=== PATIENT | female | born 1955 | race Caucasian/White ===

== ENCOUNTER → 2016-10-17 | Outpatient (CLI) | payer MEDICARE, OTHER ==
--- NOTE | 2016-10-18 08:49 | US ---
EXAMINATION TYPE: US carotid duplex BILAT DATE OF EXAM: 10/17/2016 4:53 PM COMPARISON: NONE CLINICAL HISTORY: Syncope R55. Syncope and collapse EXAM MEASUREMENTS: RIGHT: Peak Systolic Velocity (PSV) cm/sec ----- Right CCA: 61.6 ----- Right ICA: 65.1 ----- Right ECA: 69.5 ICA/CCA ratio: 1.1 RIGHT: End Diastole cm/sec ----- Right CCA: 24.1 ----- Right ICA: 25.8 ----- Right ECA: 18.0 LEFT: Peak Systolic Velocity (PSV) cm/sec ----- Left CCA: 74.7 ----- Left ICA: 85.5 ----- Left ECA: 67.7 ICA/CCA ratio: 1.1 LEFT: End Diastole cm/sec ----- Left CCA: 26.7 ----- Left ICA: 37.0 ----- Left ECA: 12.7 VERTEBRALS (direction of flow): Right Vertebral: Antegrade Left Vertebral: Antegrade TECHNOLOGIST IMPRESSION: No significant stenosis seen, bilaterally IMPRESSION: I DO NOT SEE EVIDENCE OF A HEMODYNAMICALLY SIGNIFICANT STENOSIS IN EITHER CAROTID SYSTEM. Criteria for Assigning % of Stenosis / Diameter reduction (Estimation based on the indirect measurements of the internal carotid artery velocities (ICA PSV). 1. Normal (no stenosis)=ICA PSV < 125 cm/s: ratio < 2.0: ICA EDV<40 cm/s. 2. Less than 50% stenosis=ICA PSV < 125 cm/s: ratio < 2.0: ICA EDV<40 cm/s. 3. 50 to 69% stenosis=ICA PSV of 125 to 230 cm/s: ration 2.0 ? 4.0: ICA EDV 40-100 cm/s. 4. Greater than 70% stenosis to near occlusion= ICA PSV > 230 cm/s: ratio > 4.0: ICA EDV > 100 cm/s. 5. Near occlusion= ICA PSV velocities may be low or undetectable: variable ratio and ICA EDV. 6. Total occlusion=unable to detect flow.
== END | disposition home or self-care (01) ==
LOC: RADUSWWP 16:32
PROVIDERS: ATTEND Family Medicine
DX: R55 Syncope and collapse (principal)
CPT/HCPCS: 93880

== ENCOUNTER → 2016-10-17 | Outpatient (CLI) | payer MEDICARE, OTHER ==
[2016-10-17 16:04] LABS: Calcium 9.1 mg/dL (8.4-10.2); Potassium 4.4 mmol/L (3.5-5.1)
[2016-10-17 17:19] LABS: Potassium,Urine Random 50.1 mmol/L
== END | disposition home or self-care (01) ==
LOC: LABWHC1 15:06
PROVIDERS: ATTEND Family Medicine
DX: E87.5 Hyperkalemia (principal)
CPT/HCPCS: 36415; 80048; 82088; 82533; 83930; 83935; 84133; 84244; 84300

== ENCOUNTER → 2016-10-17 | Outpatient (CLI) | payer MEDICARE, OTHER ==
--- NOTE | 2016-10-17 19:02 | XR ---
EXAMINATION TYPE: XR chest 2V DATE OF EXAM: 10/17/2016 4:12 PM COMPARISON: NONE TECHNIQUE: PA and lateral views submitted. HISTORY: Pulmonary nodule FINDINGS: The lungs are clear and there is no pneumothorax, pleural effusion, or focal pneumonia. Postsurgica l change right shoulder. Degenerative change of the spine. IMPRESSION: 1. No acute process. No sizable pulmonary nodule. If there is a history of pulmonary nodule consider CT scan.
--- NOTE | 2016-10-17 19:03 | XR ---
EXAMINATION TYPE: XR Hip Complete RT DATE OF EXAM: 10/17/2016 4:12 PM COMPARISON: None HISTORY: Right TECHNIQUE: 2 views submitted FINDINGS: There is no evidence of erosive change or acute fracture. There is narrowing along the superior margin of the joint space. IMPRESSION: 1. No evidence of acute fracture or dislocation. 2. Osteoarthritis.
--- NOTE | 2016-10-17 19:04 | XR ---
EXAM TYPE: LUMBAR SPINE X RAY SERIES COMPARISON: NONE HISTORY: Low back pain TECHNIQUE: 3 views are submitted. FINDINGS: Alignment is anatomic. The pedicles are intact. The transverse processes are intact. There is no s pondylolysis or spondylolisthesis. Hypertrophic changes are seen at multiple levels with multilevel mild degenerative disc disease and diffuse osteopenia. IMPRESSION: 1. Multilevel degenerative disc disease.
== END | disposition home or self-care (01) ==
LOC: RADXRMAIN 15:41
PROVIDERS: ATTEND Family Medicine
DX: M16.11 Unilateral primary osteoarthritis, right hip (principal); M51.36 Other intervertebral disc degeneration, lumbar region; R91.1 Solitary pulmonary nodule
CPT/HCPCS: 36415; 71020; 72100; 73502; 80048; 82088; 82533; 83930; 83935; 84133; 84244; 84300; 93880

== ENCOUNTER → 2016-10-18 | Outpatient (CLI) | payer MEDICARE, OTHER ==
--- NOTE | 2016-10-19 09:17 | ECHOF ---
Referral Reason:I49.9 Cardiac Arrhythmia MEASUREMENTS -------- HEIGHT: 162.6 cm WEIGHT: 101.6 kg BP: IVSd: 1.3 cm (0.6 - 1.1) LVIDd: 4.1 cm (3.9 - 5.3) LVPWd: 1.1 cm (0.6 - 1.1) IVSs: 2.1 cm LVIDs: 2.2 cm LVPWs: 1.8 cm Ao Diam: 3.5 cm (2.0 - 3.7) AV Cusp: 1.6 cm (1.5 - 2.6) LA Diam: 2.2 cm (2.7 - 3.8) MV EXCURSION: 18.048 mm (> 18.000) MV EF SLOPE: 113 mm/s (70 - 150) EPSS: 0.4 cm MV E Antoine: 0.80 m/s MV DecT: 212 ms MV A Antoine: 0.73 m/s MV E/A Ratio: 1.10 AR PHT: 510 ms RAP: 5.00 mmHg RVSP: 20.55 mmHg FINDINGS -------- Sinus rhythm. This was a technically good study. There is mild concentric left ventricular hypertrophy. Overall left ventricular systolic function is normal with, an EF between 55 - 60 %. The right ventricle is normal in size and function. The left atrium is normal in size. The right atrium is normal in size. Aortic valve is trileaflet and is mildly thickened. There is mild aortic regurgitation. There is trace mitral regurgitation. Trace tricuspid regurgitation present. The right ventricular systolic pressure, as measured by Doppler, is 20.55mmHg. Pulmonic valve appears structurally normal. The aortic root size is normal. The pericardium is normal. CONCLUSIONS -------- 1. Sinus rhythm. 2. There is trace mitral regurgitation. 3. Trace tricuspid regurgitation present. 4. The right ventricular systolic pressure, as measured by Doppler, is 20.55mmHg. 5. Pulmonic valve appears structurally normal. 6. The aortic root size is normal. 7. The pericardium is normal. 8. This was a technically good study. 9. There is mild concentric left ventricular hypertrophy. 10. Overall left ventricular systolic function is normal with, an EF between 55 - 60 %. 11. The right ventricle is normal in size and function. 12. The left atrium is normal in size. 13. The right atrium is normal in size. 14. Aortic valve is trileaflet and is mildly thickened. 15. There is mild aortic regurgitation. IAP DISPLAYS ANALYST: Swathi Farrell RDCS
== END | disposition home or self-care (01) ==
LOC: RADECHMAIN 14:33
PROVIDERS: ATTEND Family Medicine
DX: I34.0 Nonrheumatic mitral (valve) insufficiency (principal); I07.1 Rheumatic tricuspid insufficiency; I35.1 Nonrheumatic aortic (valve) insufficiency
CPT/HCPCS: 93306

== ENCOUNTER → 2017-01-06 | Outpatient (CLI) | payer MEDICARE, OTHER ==
[2017-01-06 11:12] LABS: CH 31.3; CHCM 34.1; HCT 44.3 % (34.0-46.0); HDW 2.95; HGB 14.7 gm/dL (11.4-16.0); MCH 30.6 pg (25.0-35.0); MCHC 33.1 g/dL (31.0-37.0); MCV 92.5 fL (80.0-100.0); Mean Platelet Volume 8.3; RBC 4.79 m/uL (3.80-5.40); RDW 14.6 % (11.5-15.5); WBC 4.8 k/uL (3.8-10.6)
[2017-01-06 11:18] LABS: Appearance,Urine Cloudy (Clear); Bacteria,Urine Moderate /hpf; Bilirubin,Urine Negative (Negative); Glucose,Urine (UA) Negative (Negative); Ketones,Urine Negative (Negative); Leukocyte Esterase,Urine Large (Negative); Mucus,Urine Occasional /hpf; Nitrite,Urine Negative (Negative); Particle Count 4315; Protein,Urine Trace (Negative); RBC,Urine 5 /hpf (0-5); Specific Gravity,Urine 1.018 (1.001-1.035); Squamous Epithelial Cell,Urine 5 /hpf (0-4); UA Billing (MACRO vs. MICRO) MICRO; Urobilinogen,Urine <2.0 mg/dL (<2.0); WBC,Urine 60 /hpf (0-5)
[2017-01-06 12:09] LABS: Calcium 9.2 mg/dL (8.4-10.2); Magnesium 2.1 mg/dL (1.6-2.3); Phosphorous 3.2 mg/dL (2.5-4.5); Potassium 3.9 mmol/L (3.5-5.1); Uric Acid 4.7 mg/dL (3.7-7.4)
[2017-01-06 12:18] LABS: % Iron Saturation 28.9 % (20-50)
== END | disposition home or self-care (01) ==
LOC: LABWHC1 10:39
PROVIDERS: ATTEND Nurse Practitioner Family
DX: N18.3 Chronic kidney disease, stage 3 (moderate) (principal); D64.9 Anemia, unspecified; N39.0 Urinary tract infection, site not specified; E21.3 Hyperparathyroidism, unspecified; E55.9 Vitamin D deficiency, unspecified; M10.9 Gout, unspecified; R19.7 Diarrhea, unspecified
CPT/HCPCS: 36415; 80048; 81001; 82306; 82728; 83540; 83550; 83735; 83970; 84100; 84550; 85027; 87045; 87046; 87324; 87328; 89055

== ENCOUNTER → 2017-04-08 | Outpatient (CLI) | payer MEDICARE, OTHER ==
[2017-04-08 11:05] LABS: CH 32.5; HCT 42.6 % (34.0-46.0); HDW 2.91; HGB 14.4 gm/dL (11.4-16.0); MCH 31.6 pg (25.0-35.0); MCHC 33.9 g/dL (31.0-37.0); MCV 93.4 fL (80.0-100.0); Mean Platelet Volume 9.1; RBC 4.56 m/uL (3.80-5.40); RDW 14.5 % (11.5-15.5); WBC 4.2 k/uL (3.8-10.6)
[2017-04-08 11:15] LABS: Anion Gap 9 mmol/L; Blood Urea Nitrogen 16 mg/dL (7-17); Calcium 9.3 mg/dL (8.4-10.2); Carbon Dioxide 21 mmol/L (22-30); Chloride 112 mmol/L (98-107); Glucose 80 mg/dL (74-99); Iron 99 ug/dL (37-170); Magnesium 2.1 mg/dL (1.6-2.3); Non-African American GFR(MDRD) 50 (>60 ml/min/1.73 sqM); Phosphorous 3.2 mg/dL (2.5-4.5); Sodium 142 mmol/L (137-145)
[2017-04-08 11:24] LABS: % Iron Saturation 28.4 % (20-50); Total Iron Binding Capacity 349 ug/dL (265-497)
[2017-04-08 11:35] LABS: Appearance,Urine Cloudy (Clear); Bacteria,Urine Many /hpf; Bilirubin,Urine Negative (Negative); Calcium Oxalate Crystals,Urine Few /hpf; Glucose,Urine (UA) Negative (Negative); Ketones,Urine Negative (Negative); Leukocyte Esterase,Urine Small (Negative); Mucus,Urine Rare /hpf; Nitrite,Urine Negative (Negative); Particle Count 9920; Protein,Urine Trace (Negative); Specific Gravity,Urine 1.019 (1.001-1.035); Squamous Epithelial Cell,Urine 1 /hpf (0-4); UA Billing (MACRO vs. MICRO) MICRO; Urobilinogen,Urine <2.0 mg/dL (<2.0); WBC,Urine 6 /hpf (0-5)
== END | disposition home or self-care (01) ==
LOC: LABWHC1 10:25
PROVIDERS: ATTEND Nurse Practitioner Family
DX: N18.3 Chronic kidney disease, stage 3 (moderate) (principal); D63.1 Anemia in chronic kidney disease; N39.0 Urinary tract infection, site not specified; E21.3 Hyperparathyroidism, unspecified; E55.9 Vitamin D deficiency, unspecified; M10.9 Gout, unspecified
CPT/HCPCS: 36415; 80048; 81001; 82306; 82728; 83540; 83550; 83735; 83970; 84100; 84550; 85027

== ENCOUNTER → 2017-07-22 | Outpatient (CLI) | payer MEDICARE, OTHER ==
--- NOTE | 2017-07-22 15:23 | US ---
EXAMINATION TYPE: US pelvic complete DATE OF EXAM: 07/22/2017 COMPARISON: NONE CLINICAL HISTORY: R10.2 PELVIC PAIN. Pelvic pain, 2, para 2, history of hysterectomy and tuba l ligation TECHNIQUE: Transvaginal (TV) and Transabdominal (TA) Date of LMP: 30+ years ago EXAM MEASUREMENTS: Uterus: surgically absent Endometrial Stripe: surgically absent Right Ovary: not seen Left Ovary: not seen 1. Uterus: surgically absent 2. Endometrium: surgically absent 3. Right Ovary: not seen on today's exam 4. Left Ovary: not seen on today's exam 5. Bilateral Adnexa: wnl 6. Posterior cul-de-sac: wnl IMPRESSION: Postop pelvis. Otherwise unremarkable study.
== END | disposition home or self-care (01) ==
LOC: RADUSWWP 13:24
PROVIDERS: ATTEND Obstetrics & Gynecology
DX: R10.2 Pelvic and perineal pain (principal); Z98.890 Other specified postprocedural states
CPT/HCPCS: 76830; 76856

== ENCOUNTER → 2017-08-25 | Outpatient (CLI) | payer MEDICARE, OTHER ==
--- NOTE | 2017-08-25 11:37 | BD ---
EXAMINATION TYPE: MG DEXA axial skeleton. DATE OF EXAM: 08/25/2017 COMPARISON: NONE CLINICAL HISTORY: M81.0 Osteoporosis Height: 64 Weight: 241.5 FRAX RISK QUESTIONS: Alcohol (3 or more units per day): no Family History (Parent hip fracture): no Glucocorticoids (More than 3mos): no (Ex: prednisone, prednisolone, methylprednisolone, dexamethasone, and hydrocortisone). History of Fracture in Adulthood: no Secondary Osteoporosis: 1. Type 1 Diabetes: no 2. Hyperthyroidism: no 3. Menopause before 45: yes 4. Malnutrition: no 5. Chronic liver disease: no Rheumatoid Arthritis: no Current Tobacco Use: no RISK FACTORS HISTORY OF: Hip Fracture (Right/Left): no When: age 6 Spine Fracture: no History of Wrist Fracture: right wrist When: age 6 Surgery to Spine/Hip(right/left)/Wrist (right/left): no Family History of Osteoporosis: yes Active: sometimes Diet low in dairy products/other sources of calcium: yes Postmenopausal woman: around age 39 Lost more than 2 inches in height since high school: no Frequent falls: yes Poor Health: no Hyperparathyroidism: no Adrenal Insufficiency: no MEDICATIONS: xanax, gabapentin, blood pressure med, calcium, vit d, cholesterol med, lasix Additional History: EXAM MEASUREMENTS: Bone mineral densitometry was performed using the [employer] System. Bone mineral density as measured about the Lumbar spine is: ----- L1-L4(G/cm2): 1.061 T Score Values are as follows: ----- L2: -1.6 ----- L3: -0.7 ----- L4: -0.5 ----- L1-L4: -1.0 Bone mineral density has: decreased -0.7 % since study of: 01.17.2012 Bone mineral density about the R hip (g/cm2): 0.752 Bone mineral density about the L hip (g/cm2): 0.780 T Score values are as follows: -----R Neck: -2.1 -----L Neck: -1.9 -----R Total: -1.3 -----L Total: -0.9 Bone mineral density has: decreased -12.7 % since study of: 01.17.2012 IMPRESSION: Osteopenia lumbar spine. Osteopenia right hip. NOTE: T-SCORE=SD OF THE YOUNG ADULT MEAN.
--- NOTE | 2017-08-27 07:32 | MM ---
Reason for exam: screening (asymptomatic). Last mammogram was performed 7 months ago. History: Family history of breast cancer in 2 paternal aunts and breast cancer in 3 paternal cousins. Benign excisional biopsy of the left breast, 2014. Physical Findings: A clinical breast exam by your physician is recommended on an annual basis and results should be correlated with mammographic findings. MG 3D Screening Mammo W/Cad Bilateral CC and MLO view(s) were taken. Prior study comparison: January 30, 2017, mammogram, performed at [facility]. January 10, 2016, mammogram, performed at [facility]. There are scattered fibroglandular densities. There are benign appearing, stable, bilateral, round, circumscribed masses. No suspicious abnormality. No significant changes when compared with prior studies. ASSESSMENT: Benign, BI-RAD 2 RECOMMENDATION: Routine screening mammogram of both breasts in 1 year.
== END | disposition home or self-care (01) ==
LOC: RADMAMWWP 09:32
PROVIDERS: ATTEND Obstetrics & Gynecology
DX: Z12.31 Encounter for screening mammogram for malignant neoplasm of breast (principal); M85.851 Other specified disorders of bone density and structure, right thigh; M85.88 Other specified disorders of bone density and structure, other site
CPT/HCPCS: 77063; 77067; 77080

== ENCOUNTER → 2018-10-15 | Outpatient (CLI) | payer MEDICARE, OTHER ==
[2018-10-15 10:46] LABS: Basophils % (A) 1 %; Eosinophils # (A) 0.2 k/uL (0-0.7); Eosinophils % (A) 6 %; HCT 41.7 % (34.0-46.0); HGB 13.3 gm/dL (11.4-16.0); Hypochromasia Slight; Lymphocytes # (A) 0.9 k/uL (1.0-4.8); Lymphocytes % (A) 21 %; MCHC 31.8 g/dL (31.0-37.0); MCV 97.5 fL (80.0-100.0); Mean Platelet Volume 8.4; Monocytes # (A) 0.3 k/uL (0-1.0); Monocytes % (A) 7 %; Neutrophils # (A) 2.6 k/uL (1.3-7.7); Neutrophils % (A) 63 %; Platelet Count 142 k/uL (150-450); RBC 4.28 m/uL (3.80-5.40); WBC 4.1 k/uL (3.8-10.6)
[2018-10-15 11:39] LABS: Erythrocyte Sedimentation Rate 10 mm/hr (0-20)
[2018-10-15 17:33] LABS: Gliadin AB IgA, Unit <0.2 U/mL
[2018-10-15 17:48] LABS: ALT 10 U/L (8-44); AST 19 U/L (13-35); Albumin/Globulin Ratio 1.82 (1.60-3.17); Alkaline Phosphatase 117 U/L (41-126); C Reactive Protein <0.4 mg/dL (0.0-0.8); Carbon Dioxide 21.8 mmol/L (21.6-31.8); Chloride 113 mmol/L (96-109); Globulin 2.2 g/dL (1.6-3.3); Glucose 77 mg/dL (70-110); Potassium 3.7 mmol/L (3.5-5.5); Sodium 143 mmol/L (135-145); Total Bilirubin 0.8 mg/dL (0.3-1.2); Total Protein 6.2 g/dL (6.2-8.2)
== END | disposition home or self-care (01) ==
LOC: LABWHC1 10:13
PROVIDERS: ATTEND Internal Medicine
DX: R19.7 Diarrhea, unspecified (principal)
CPT/HCPCS: 36415; 80053; 83516; 83630; 83993; 84439; 84443; 85025; 85652; 86140; 87045; 87046; 87324; 87328; 87329

== ENCOUNTER 2018-10-22 10:32 | Day surgery (SDC) | payer MEDICARE, OTHER ==
[2018-10-20 14:54] VITALS: BMI 39.8
[~2018-10-22 10:32] MED LIST: LACTATED RINGERS 1,000 ML IV SCH
[2018-10-22 10:53] VITALS: TEMP 98.2
[2018-10-22] MEDS ORDERED: SODIUM CHLORIDE 0.9% 1,000 ML IV ONE (11:05)
[2018-10-22] MEDS ORDERED: LIDOCAINE 1% 20 ML VIAL (10MG/ML) FOR IV START INTRADERMA ONE (11:05)
[2018-10-22] MEDS ORDERED: LIDOCAINE 1% INJ 10MG/ML (20 ML MDV) ONE (11:06)
[2018-10-22] MEDS ORDERED: GLYCOPYRROLATE 0.2 MG/ML 2 ML VIAL ONE (11:06)
[2018-10-22] MEDS ORDERED: PROPOFOL 10 MG/ML 20 ML VIAL IV ONE (11:06)
[2018-10-22 12:08] VITALS: RESP 16
--- NOTE | 2018-10-22 12:17 | P.PCN ---
Date of Procedure: 10/22/18 Description of Procedure: Brief history: Patient is a pleasant scheduled for an elective upper endoscopy as well as colonoscopy as a part of evaluation of symptoms of dysphagia and change in bowel habits/diarrhea. The patient reports loose stool occurring anywhere from 4 to 10 times per day. She reports mainly liquid watery stool but denies any blood per rectum. She reports urgency with the bowel movements. She states last colonoscopy was approximately 7 years ago when she was told this was normal. She reports associated weight loss with the loose stool. She also has a history of a Zayra fundoplication and hiatal hernia repair which was complicated and required a revision. She reports intermittent dysphagia since that time mainly to solid foods. Procedure performed: Esophagogastroduodenoscopy with biopsy Colonoscopy with biopsy Estimated blood loss: Minimal. Preoperative diagnosis: Dysphagia, unintentional weight loss, change in bowel habits, diarrhea Anesthesia: [facility] Procedure: After informed consent was obtained from the patient was brought into the endoscopy unit and IV sedation was administered by anesthesia under continuous monitoring. Initially upper endoscopy was done. The Olympus GF 190 video endoscope was inserted inserted into the mouth and esophagus intubated without any difficulty and was gradually advanced into the stomach and duodenum and carefully examined. The bulb and second part of the duodenum appeared normal, with biopsies taken to rule out celiac disease. The scope was then withdrawn into the stomach adequately insufflated with air and upon careful examination the antrum and body, cardia and fundus appeared normal, except for some mild scattered erythema in the antrum and body characteristic of mild gastritis which was biopsied. The scope was then withdrawn into the esophagus. Changes the GE junction and stomach consistent with patient's prior Zayra fundoplication and hiatal hernia repair. It appeared regular with no erythema erosions or ulcerations, and was easily traversed by the scope. Dilation of the GE junction with a ckokoqz-vrp-gkkch balloon dilator serially from 12 mm to 18 mm was performed. Rest of the esophagus appeared normal, with mid esophageal biopsies performed to rule out eosinophilic esophagitis. Patient tolerated the procedure well. At this time the patient continued to remain sedation. Initial digital rectal examination was normal. Olympus CF 190 video colonoscope was then inserted into the rectum and gradually advanced to the cecum without any difficulty. Careful examination was performed as the scope was gradually being withdrawn. The prep was excellent. The cecum, ascending colon, transverse colon, descending colon, sigmoid colon and rectum appeared normal. Random biopsies of the right colon, transverse colon and left colon were taken given the patient's history of diarrhea to rule out microscopic colitis. Retroflexion was performed in the rectum and no lesions were noted, with mild internal hemorrhoids. Patient tolerated the procedure well. Impression: 1. Mild gastritis antrum and body, biopsied. Esophageal and duodenal biopsies. Dilation with a jsyubnz-swz-mbchd dilator serially from 12 mm to 18 mm 2. Random biopsies of the right colon, transverse colon and left colon for evaluation of diarrhea. Mild internal hemorrhoids. Recommendations: Findings of this examination were discussed with the patient. Await pathology from biopsies. Okay for diet. Follow-up in clinic as previously scheduled. Further recommendations pending findings of biopsies.
[2018-10-22 12:36] VITALS: BP 111/72; PULSE 68
== END 2018-10-22 13:06 | disposition home or self-care (01) ==
LOC: ORWHC2ENDO 10:32
PROVIDERS: ATTEND Internal Medicine
DX: K29.50 Unspecified chronic gastritis without bleeding (principal); K64.8 Other hemorrhoids; K20.9 Esophagitis, unspecified; K50.10 Crohn's disease of large intestine without complications; Z79.899 Other long term (current) drug therapy; J45.909 Unspecified asthma, uncomplicated; I12.9 Hypertensive chronic kidney disease with stage 1 through stage 4 chronic kidney disease, or unspecified chronic kidney disease; N18.3 Chronic kidney disease, stage 3 (moderate); R13.10 Dysphagia, unspecified
CPT/HCPCS: 43239; 43249; 45380; 88305

== ENCOUNTER → 2018-12-26 | Outpatient (CLI) | payer MEDICARE, OTHER ==
[2018-12-26 13:01] LABS: Basophils % (A) 1 %; Eosinophils # (A) 0.2 k/uL (0-0.7); Eosinophils % (A) 3 %; HCT 45.6 % (34.0-46.0); HGB 14.5 gm/dL (11.4-16.0); Lymphocytes # (A) 0.9 k/uL (1.0-4.8); Lymphocytes % (A) 17 %; MCH 30.4 pg (25.0-35.0); MCHC 31.8 g/dL (31.0-37.0); MCV 95.6 fL (80.0-100.0); Mean Platelet Volume 8.3; Monocytes # (A) 0.4 k/uL (0-1.0); Monocytes % (A) 7 %; Neutrophils # (A) 3.6 k/uL (1.3-7.7); Neutrophils % (A) 70 %; Platelet Count 197 k/uL (150-450); RBC 4.77 m/uL (3.80-5.40); RDW 13.9 % (11.5-15.5); WBC 5.2 k/uL (3.8-10.6)
[2018-12-26 13:21] LABS: Appearance,Urine Cloudy (Clear); Bacteria,Urine Occasional /hpf; Bilirubin,Urine Negative (Negative); Blood,Urine Trace (Negative); Calcium Oxalate Crystals,Urine Occasional /hpf; Color,Urine Yellow; Glucose,Urine (UA) Negative (Negative); Ketones,Urine Negative (Negative); Leukocyte Esterase,Urine Large (Negative); Mucus,Urine Rare /hpf; Nitrite,Urine Negative (Negative); Protein,Urine Trace (Negative); RBC,Urine 5 /hpf (0-5); Specific Gravity,Urine 1.021 (1.001-1.035); Squamous Epithelial Cell,Urine 4 /hpf (0-4); Urobilinogen,Urine <2.0 mg/dL (<2.0); WBC,Urine 139 /hpf (0-5)
[2018-12-26 16:09] LABS: Iron Saturation 24.56 (12.00-45.00)
[2018-12-26 16:14] LABS: Anion Gap 7.3 mmol/L (4.00-12.00); Calcium 9.5 mg/dL (8.7-10.3); Carbon Dioxide 27.7 mmol/L (21.6-31.8); Magnesium 2.1 mg/dL (1.5-2.4); Phosphorus 3.8 mg/dL (2.4-5.1); Potassium 4.8 mmol/L (3.5-5.5); Uric Acid 4.4 mg/dL (2.9-7.7)
[2018-12-26 16:19] LABS: Vitamin D 25 Hydroxy 28.5 ng/mL (30.0-100.0)
[2018-12-26 16:21] LABS: Parathyroid Hormone Intact 69.1 pg/mL (14.0-72.0)
[2018-12-26 19:34] LABS: Creatinine,Urine Random 108.4 mg/dL
[2018-12-26 19:35] LABS: Total Protein,Urine Random 20.6 mg/dL (0.0-13.5)
== END | disposition home or self-care (01) ==
LOC: LABMAIN 12:15
PROVIDERS: ATTEND Internal Medicine Nephrology
DX: N39.0 Urinary tract infection, site not specified (principal); E55.9 Vitamin D deficiency, unspecified; M10.9 Gout, unspecified; D63.1 Anemia in chronic kidney disease; N18.3 Chronic kidney disease, stage 3 (moderate); N25.81 Secondary hyperparathyroidism of renal origin
CPT/HCPCS: 36415; 80048; 81001; 82040; 82306; 82570; 82728; 83540; 83550; 83735; 83970; 84100; 84156; 84550; 85025

== ENCOUNTER → 2019-01-07 | Outpatient (CLI) | payer MEDICARE, OTHER ==
--- NOTE | 2019-01-07 15:18 | US ---
EXAMINATION TYPE: US kidneys/renal and bladder DATE OF EXAM: 01/07/2019 COMPARISON: NONE CLINICAL HISTORY: N18.3 CKD. EXAM MEASUREMENTS: Right Kidney: 10.5 x 4.2 x 4.7 cm Left Kidney: 9.9 x 4.6 x 4.1 cm Patient of large body habitus. Right Kidney: No hydronephrosis, nephrolithiasis or masses seen Left Kidney: Inferior pole obscured by bowel gas. No hydronephrosis or nephrolithiasis. Bladder: wnl There is no evidence for hydronephrosis at this point in time. Minimal bilateral cortical renal thinn ing. No nephrolithiasis is seen. No masses are identified. The urinary bladder is anechoic. IMPRESSION: No hydronephrosis or nephrolithiasis. Minimal cortical renal thinning is seen bilaterally , sequela of medical renal disease.
== END | disposition home or self-care (01) ==
LOC: RADUSWWP 14:15
PROVIDERS: ATTEND Internal Medicine Nephrology
DX: N18.3 Chronic kidney disease, stage 3 (moderate) (principal)
CPT/HCPCS: 76770

== ENCOUNTER → 2019-02-19 | Outpatient (CLI) | payer MEDICARE, OTHER ==
--- NOTE | 2019-02-22 11:37 | MM ---
Reason for exam: screening (asymptomatic). Last mammogram was performed 1 year and 6 months ago. History: Family history of breast cancer in 2 paternal aunts and breast cancer in 3 paternal cousins. Benign excisional biopsy of the left breast, 2014. Physical Findings: A clinical breast exam by your physician is recommended on an annual basis and results should be correlated with mammographic findings. MG 3D Screening Mammo W/Cad Bilateral CC and MLO view(s) were taken. Prior study comparison: August 25, 2017, bilateral MG 3d screening mammo w/cad. January 30, 2017, mammogram, performed at [facility]. There are scattered fibroglandular densities. Previous mammotome biopsy in the left breast. There is chronic nodularity bilaterally. No significant changes when compared with prior studies. ASSESSMENT: Benign, BI-RAD 2 RECOMMENDATION: Routine screening mammogram of both breasts in 1 year.
== END | disposition home or self-care (01) ==
LOC: RADMAMWWP 16:05
PROVIDERS: ATTEND Obstetrics & Gynecology
DX: Z12.31 Encounter for screening mammogram for malignant neoplasm of breast (principal)
CPT/HCPCS: 77063; 77067

== ENCOUNTER → 2019-02-19 | Outpatient (CLI) | payer MEDICARE ==
--- NOTE | 2019-02-22 07:32 | XR ---
2 view abdomen HISTORY: Abnormal bowel movements, K 52.839 2 views the abdomen submitted on 3 images There is overlying artifact. Lung bases are clear. There is no evident pneumoperitoneum or bowel obst ruction. There are air-fluid levels without bowel distention. Multiple calcifications are seen overly ing the left kidney of varying sizes the largest measuring approximately 1 cm at least 2 or 3 smaller calcifications measuring approximately 5 to 6 mm. Calcifications within the pelvis are likely vascul ar. IMPRESSION: Nonobstructive bowel gas pattern. Correlate for possible ileus or enteritis. Suspect left nephrolithiasis.
== END | disposition home or self-care (01) ==
LOC: RADXRMAIN 15:39
PROVIDERS: ATTEND Internal Medicine
DX: K52.839 Microscopic colitis, unspecified (principal)
CPT/HCPCS: 74019

== ENCOUNTER → 2019-05-27 | Outpatient (CLI) | payer MEDICARE ==
--- NOTE | 2019-05-27 08:39 | US ---
EXAMINATION TYPE: US kidneys/renal and bladder DATE OF EXAM: 05/27/2019 COMPARISON: CT 2013, and US 2018 CLINICAL HISTORY: N18.3 CKD. EXAM MEASUREMENTS: Right Kidney: 10.9 x 4.4 x 5.1 cm Left Kidney: 9.7 x 4.9 x 5.0 cm Right Kidney: No hydronephrosis or masses seen Left Kidney: at least one shadowing stone lower pole measures 0.6 x 0.7 cm. Bladder: wnl Bilateral Jets seen: no There is no evidence for hydronephrosis at this point in time. No masses are identified. The urin elle bladder is anechoic. Bilateral ureteral jets are seen. IMPRESSION: Nonobstructing nephrolithiasis left kidney.
== END ==
LOC: RADUSWWP 08:03
PROVIDERS: ATTEND Internal Medicine Nephrology
DX: N20.0 Calculus of kidney (principal); N18.3 Chronic kidney disease, stage 3 (moderate)
CPT/HCPCS: 76770

== ENCOUNTER 2020-01-01 12:48 | Emergency (ER) | payer MEDICARE ==
[2020-01-01 12:57] VITALS: BP 126/85; RESP 18; TEMP 97.5
--- NOTE | 2020-01-01 13:30 | ED ---
Fall HPI <Rashaun Dodge - Last Filed: 01/01/20 14:08> - General Source: patient Mode of arrival: ambulatory <Omar Callaway - Last Filed: 01/01/20 14:11> - General Chief Complaint: Fall Stated Complaint: Fall Time Seen by Provider: 01/01/20 12:59 - History of Present Illness Initial Comments: Patient is 64-year-old female presenting to the emergency department with a chief complaint of left ankle and shoulder pain. Patient reports yesterday she was chasing after her grandson when she lost her footing and fell on the left side of her body. Patient reports she supposedly twisted her left ankle and went down. She also reports attempting to brace herself with her left arm but her left shoulder took most of the impact. Denies any head trauma or loss of consciousness. States she is not on blood thinners. Denies taking medication to alleviate the symptoms. Denies alleviating aggravated factors. (Omar Cheema) - Related Data Home Medications Medication Instructions Recorded Confirmed ALPRAZolam [Xanax] 0.25 mg PO BID 10/20/18 10/20/18 Albuterol Inhaler (Mhu) [Ventolin 2 puff INHALATION DIRECTED PRN 10/20/18 10/22/18 Hfa Inhaler] Calcitriol 0.25 mcg PO SUTUTHSA 10/20/18 10/22/18 Calcitriol 0.5 mcg PO MOWEFR 10/20/18 10/22/18 Ergocalciferol [Vitamin D2] 50,000 unit PO RUSS 10/20/18 10/22/18 Fluticasone Propionate [Flonase 2 spray EA NOSTRIL DAILY 10/20/18 10/22/18 Allergy Relief] Furosemide [Lasix] 20 mg PO Q48H 10/20/18 10/22/18 Gabapentin 600 mg PO BID 10/20/18 10/20/18 Gemfibrozil [Lopid] 600 mg PO BID 10/20/18 10/20/18 Meclizine [Antivert] 12.5 mg PO BID 10/20/18 10/20/18 Metoprolol Tartrate [Lopressor] 25 mg PO DAILY 10/20/18 10/20/18 Sertraline [Zoloft] 100 mg PO BID 10/20/18 10/20/18 busPIRone HCL 15 mg PO BID 10/20/18 10/20/18 Allergies Allergy/AdvReac Type Severity Reaction Status Date / Time No Known Allergies Allergy Verified 01/01/20 12:57 Review of Systems ROS Other: All systems not noted in ROS Statement are negative. <Rashaun Dodge - Last Filed: 01/01/20 14:08> ROS Other: All systems not noted in ROS Statement are negative. <Omar Callaway - Last Filed: 01/01/20 14:11> ROS Statement: Those systems with pertinent positive or pertinent negative responses have been documented in the HPI. Past Medical History Past Medical History: Hypertension, Renal Disease, Thyroid Disorder History of Any Multi-Drug Resistant Organisms: None Reported Past Surgical History: Hernia Repair, Hysterectomy, Orthopedic Surgery, Tubal Ligation Additional Past Surgical History / Comment(s): cyst removal from breast Past Psychological History: No Psychological Hx Reported, Unable to Obtain Smoking Status: Never smoker Past Alcohol Use History: None Reported Past Drug Use History: None Reported <Omar Callaway - Last Filed: 01/01/20 14:11> General Exam Limitations: no limitations General appearance: alert, in no apparent distress Head exam: Present: atraumatic, normocephalic, normal inspection Eye exam: Present: normal appearance, PERRL, EOMI Pupils: Present: normal accommodation ENT exam: Present: normal exam, normal oropharynx, mucous membranes moist Neck exam: Present: normal inspection, full ROM Respiratory exam: Present: normal lung sounds bilaterally Cardiovascular Exam: Present: regular rate, normal rhythm, normal heart sounds Extremities exam: Present: normal inspection (No signs of trauma to the left ankle, foot and shoulder.), tenderness (Midfoot tenderness. Anterior and lateral deltoid tenderness.), normal capillary refill, other (+2 ulnar and radial pulses bilaterally. +2 dorsalis pedis and posterior tibialis bilaterally.). Absent: full ROM (Limited range of motion in the left ankle with inversion and eversion due to pain. Pain with R and dorsi flexion.), joint swelling, calf tenderness (Negative Homans bilaterally) Back exam: Present: normal inspection, full ROM Neurological exam: Present: alert, oriented X3 Psychiatric exam: Present: normal affect, normal mood Skin exam: Present: warm, dry, intact, normal color <Cesia,Omar - Last Filed: 01/01/20 14:11> Course <Rashaun Dodge - Last Filed: 01/01/20 14:08> Vital Signs 01/01/20 12:52 Temperature 97.5 F L Pulse Rate 56 L Respiratory 18 Rate Blood Pressure 126/85 O2 Sat by Pulse 98 Oximetry - Reevaluation(s) Reevaluation #1: 01/01/20 14:08 PA supervision: I did personally evaluate the patient did fall yesterday and complained of some pain to the ankle and shoulder. Imaging was done no acute findings. Patient be discharged I do agree with the assessment and plan. (Rashaun French) Medical Decision Making <JyothitraciJuan Jo - Last Filed: 01/01/20 14:11> - Medical Decision Making Patient is 64-year-old female presenting to emergency Department with a chief complaint of ankle and shoulder pain. On exam patient has no midfoot tenderness but no signs of ecchymosis or swelling on the left ankle and foot. Full range of motion of the left shoulder with a negative empty can test. X-ray of the foot and ankle and shoulder are unremarkable. I suspect the patient has suffered a contusion to the left shoulder and a left ankle sprain. No head trauma, no loss consciousness, no blood thinners. Return parameters were thoroughly discussed patient was understanding and agreeable. Case discussed with physician. (Omar Callaway) Disposition <Rashaun Dodge - Last Filed: 01/01/20 14:08> Is patient prescribed a controlled substance at d/c from ED?: No Time of Disposition: 14:11 <CesiaOmar - Last Filed: 01/01/20 14:11> Clinical Impression: Left ankle pain, Left foot pain, Contusion of left shoulder Disposition: HOME SELF-CARE Condition: Stable Instructions (If sedation given, give patient instructions): Fall Prevention (ED) Additional Instructions: Follow-up with primary care. Alternate between Tylenol and Motrin for pain control. Return to emergency department if symptoms worsen. Referrals: Corry Winter MD [Primary Care Provider] - 1-2 days
--- NOTE | 2020-01-01 13:50 | XR ---
EXAMINATION TYPE: XR ankle complete LT, XR foot complete LT DATE OF EXAM: 01/01/2020 CLINICAL HISTORY: Fall injury with pain. TECHNIQUE: Frontal, lateral and oblique images of the left ankle and foot are obtained. COMPARISON: Left ankle x-ray February 01, 2014 FINDINGS: Osseous structures are demineralized. There is no acute fracture/dislocation evident in the left ankle. The ankle mortise appears within normal limits. Large inferior calcaneal spur redemons trated. Mild diffuse subcutaneous edema now seen without significant focal swelling. There is no acute fracture or dislocation evident in the left foot. Flexion and the toes with fairly moderate multilevel joint space loss. Moderate narrowing first metatarsophalangeal joint. Demineraliz ation is present. Overlying soft tissue is unremarkable. IMPRESSION: There is no acute fracture or dislocation in the left ankle or foot.
--- NOTE | 2020-01-01 13:51 | XR ---
EXAMINATION TYPE: XR shoulder complete LT DATE OF EXAM: 01/01/2020 CLINICAL HISTORY: Fall injury yesterday with pain. TECHNIQUE: Three views of the left shoulder are obtained. COMPARISON: None. FINDINGS: Demineralization is present. There is no acute fracture/dislocation evident in the left sh oulder. Moderate narrowing and spurring at the acromioclavicular joint. Distal acromion morphology ma intained. Glenohumeral joint preserved. The visualized ribs are intact and unremarkable. IMPRESSION: There is no acute fracture or dislocation in the left shoulder.
[2020-01-01 14:19] VITALS: PULSE 60
== END 2020-01-01 14:18 | disposition home or self-care (01) ==
LOC: EC 12:48
DX: S40.012A Contusion of left shoulder, initial encounter (principal); M25.572 Pain in left ankle and joints of left foot; M79.672 Pain in left foot; I10 Essential (primary) hypertension; Z79.899 Other long term (current) drug therapy; Z79.51 Long term (current) use of inhaled steroids; X50.1XXA Overexertion from prolonged static or awkward postures, initial encounter
CPT/HCPCS: 99283

== ENCOUNTER → 2020-03-20 | Outpatient (CLI) | payer MEDICARE ==
--- NOTE | 2020-03-20 19:54 | BD ---
EXAMINATION TYPE: Axial Bone Density DATE OF EXAM: 03/20/2020 COMPARISON: NONE CLINICAL HISTORY: Postmenopausal screening Height: 5 FT 3 1/2 IN Weight: 243 FRAX RISK QUESTIONS: Alcohol (3 or more units per day): NO Family History (Parent hip fracture): NO Glucocorticoids (More than 3mos): NO (Ex: prednisone, prednisolone, methylprednisolone, dexamethasone, and hydrocortisone). History of Fracture in Adulthood: YES Secondary Osteoporosis: 1. Type 1 Diabetes: NO 2. Hyperthyroidism: NO 3. Menopause before 45: YES 4. Malnutrition: NO 5. Chronic liver disease: NO Rheumatoid Arthritis: NO Current Tobacco Use: NO RISK FACTORS HISTORY OF: Surgery to Spine/Hip(right/left)/Wrist (right/left): RT WRIST When: 2018 Family History of Osteoporosis: YES Active: SOMEWHAT Postmenopausal woman: If Premenopausal, do you have irregular periods: PART HYST AROUND AGE 39 Poor Health: FAIR MEDICATIONS: Thyroid Medications: YES Which medication: UNSURE How Lon MONTHS Additional Medications: THYROID MEDS, XANAX, GABAPENTIN, BLOOD PRESSURE MEDS, CHOLESTEROL MEDS, LASIX , MEDS FOR DIZZINESS, ZOLOFT Additional History: EXAM MEASUREMENTS: Bone mineral densitometry was performed using the [employer] System. Bone mineral density as measured about the Lumbar spine is: ----- L1-L4(G/cm2): 1.016 T Score Values are as follows: ----- L2: -1.7 ----- L3: -1.3 ----- L4: -0.8 ----- L1-L4: -1.4 Bone mineral density has: DECREASED -4.0 % since study of: 2017 Bone mineral density about the R hip (g/cm2): 0.732 Bone mineral density about the L hip (g/cm2): 0.734 T Score values are as follows: -----R Neck: -2.2 -----L Neck: -2.2 -----R Total: -1.5 -----L Total: -1.0 Bone mineral density has: DECREASED -1.7 % since study of: 2017 IMPRESSION: Osteopenia (T Score between -2.5 and -1). There is slightly increased risk of fracture and the patient may be considered for treatment. Re-Screen 2-5 years. NOTE: T-SCORE=SD OF THE YOUNG ADULT MEAN.
--- NOTE | 2020-03-21 09:51 | MM ---
Reason for exam: screening (asymptomatic). Last mammogram was performed 1 year and 1 month ago. History: Family history of breast cancer in 2 paternal aunts and breast cancer in 3 paternal cousins. Benign excisional biopsy of the left breast, 2014. Physical Findings: A clinical breast exam by your physician is recommended on an annual basis and results should be correlated with mammographic findings. MG 3D Screening Mammo W/Cad Bilateral CC and MLO view(s) were taken. Prior study comparison: February 19, 2019, bilateral MG 3d screening mammo w/cad. August 25, 2017, bilateral MG 3d screening mammo w/cad. The breast tissue is heterogeneously dense. This may lower the sensitivity of mammography. Previous mammotome biopsy in the left breast. There is chronic nodularity in the left breast. There is no discrete abnormality. ASSESSMENT: Benign, BI-RAD 2 RECOMMENDATION: Routine screening mammogram of both breasts in 1 year.
== END | disposition home or self-care (01) ==
LOC: RADMAMWWP 08:16
PROVIDERS: ATTEND Obstetrics & Gynecology
DX: Z12.31 Encounter for screening mammogram for malignant neoplasm of breast (principal); M85.80 Other specified disorders of bone density and structure, unspecified site
CPT/HCPCS: 77063; 77067; 77080

== ENCOUNTER 2021-04-24 09:24 | Emergency (ER) | payer MEDICARE ==
[2021-04-24 09:31] VITALS: TEMP 97.9
[2021-04-24] MEDS ORDERED: DIAZEPAM 5 MG/ML 2 ML INJ IVP STA (10:02)
[2021-04-24] MEDS ORDERED: ONDANSETRON 4 MG/2 ML VIAL IVP STA (10:02)
[2021-04-24] MEDS ORDERED: MECLIZINE 25 MG TAB PO STA (10:02)
--- NOTE | 2021-04-24 10:08 | ED ---
General Adult HPI - General Chief complaint: Dizziness Stated complaint: Dizziness Time Seen by Provider: 04/24/21 09:30 Source: patient, RN notes reviewed, old records reviewed Mode of arrival: wheelchair Limitations: no limitations - History of Present Illness Initial comments: This is a 66-year-old female with past medical history significant for dep ression and anxiety and vertigo. Patient states she woke up this morning felt fine in the bed however recently she got out of bed the room started spinning and she needed something to hold onto him walk around. Patient states she also became very nauseated and vomited a few times. Patient denies any headache patient denies numbness weakness. Patient denies any chest pain palpitations difficulty breathing shortness breath. Patient denies any recent fever chills or cough. Patient denies any abdominal pain patient denies any diarrhea. Patient denies any recent injury or fall. Patient states she has had some cramping in her thighs lately. - Related Data Home Medications Medication Instructions Recorded Confirmed ALPRAZolam [Xanax] 0.25 mg PO BID 10/20/18 04/24/21 Ergocalciferol [Vitamin D2] 50,000 unit PO FR 10/20/18 04/24/21 Fluticasone Propionate [Flonase 2 spray EA NOSTRIL DAILY 10/20/18 04/24/21 Allergy Relief] Furosemide [Lasix] 20 mg PO DAILY 10/20/18 04/24/21 Meclizine [Antivert] 12.5 mg PO BID 10/20/18 04/24/21 Metoprolol Tartrate [Lopressor] 50 mg PO DAILY 10/20/18 04/24/21 busPIRone HCL 15 mg PO BID 10/20/18 04/24/21 calcitrioL [Calcitriol] 0.25 mcg PO SUTUTHSA 10/20/18 04/24/21 calcitrioL [Calcitriol] 0.5 mcg PO MOWEFR 10/20/18 04/24/21 gemfibroziL [Lopid] 600 mg PO BID 10/20/18 04/24/21 Albuterol Sulfate [Ventolin HFA] 1 puff INHALATION RT-Q4H PRN 04/24/21 04/24/21 Cholecalciferol (Vitamin D3) 125 mcg PO DAILY 04/24/21 04/24/21 [Vitamin D3 (125 MCG = 5,000 IU)] DULoxetine HCL [Cymbalta] 60 mg PO DAILY 04/24/21 04/24/21 Diphenox-Atrop 2.5-0.025 mg 1 tab PO BID@1200,2100 PRN 04/24/21 04/24/21 [Lomotil] Diphenoxylate HCl/Atropine 1 tab PO DAILY 04/24/21 04/24/21 [Lomotil 2.5-0.025 mg Tablet] Fexofenadine HCl 180 mg PO DAILY 04/24/21 04/24/21 Fluticasone/Salmeterol [Advair 1 puff INHALATION RT-BID 04/24/21 04/24/21 250-50 Diskus] Levothyroxine Sodium [Synthroid] 25 mcg PO DAILY 04/24/21 04/24/21 Omeprazole 20 mg PO DAILY 04/24/21 04/24/21 Pregabalin [Lyrica] 100 mg PO BID 04/24/21 04/24/21 Terbinafine [LamISIL] 250 mg PO DAILY 04/24/21 04/24/21 Allergies Allergy/AdvReac Type Severity Reaction Status Date / Time ibuprofen [From Motrin] AdvReac KIDNEY Verified 04/24/21 10:35 DISEASE Review of Systems ROS Statement: Those systems with pertinent positive or pertinent negative responses have been documented in the HPI. ROS Other: All systems not noted in ROS Statement are negative. Past Medical History Past Medical History: Hypertension, Renal Disease, Thyroid Disorder History of Any Multi-Drug Resistant Organisms: None Reported Past Surgical History: Hernia Repair, Hysterectomy, Orthopedic Surgery, Tubal Ligation Additional Past Surgical History / Comment(s): cyst removal from breast Past Psychological History: No Psychological Hx Reported Smoking Status: Never smoker Past Alcohol Use History: None Reported Past Drug Use History: None Reported General Exam - General Exam Comments Initial Comments: GENERAL: Patient is well-developed and well-nourished. Patient is nontoxic and well- hydrated and is in mild distress. ENT: Neck is soft and supple. No significant lymphadenopathy is noted. Oropharynx is clear. Moist mucous membranes. Neck has full range of motion without eliciting any pain. EYES: The sclera were anicteric and conjunctiva were pink and moist. Extraocular movements were intact and pupils were equal round and reactive to light. Eyelids were unremarkable. PULMONARY: Unlabored respirations. Good breath sounds bilaterally. No audible rales rhonchi or wheezing was noted. CARDIOVASCULAR: There is a regular rate and rhythm without any murmurs gallops or rubs. ABDOMEN: Soft and nontender with normal bowel sounds. SKIN: Skin is clear with no lesions or rashes and otherwise unremarkable. NEUROLOGIC: Patient is alert and oriented x3. Cranial nerves II through XII are grossly intact. Motor and sensory are also intact. Normal speech, volume and content. Symmetrical smile. Cerebellar exam grossly intact. MUSCULOSKELETAL: Normal extremities with adequate strength and full range of motion. No lower extremity swelling or edema. No calf tenderness. LYMPHATICS: No significant lymphadenopathy is noted PSYCHIATRIC: Normal psychiatric evaluation. Limitations: no limitations Course Vital Signs 04/24/21 04/24/21 04/24/21 09:26 10:00 11:00 Temperature 97.9 F Pulse Rate 56 L 63 61 Respiratory 143 H 14 19 Rate Blood Pressure 141/99 109/71 106/67 O2 Sat by Pulse 95 96 95 Oximetry 04/24/21 11:31 Temperature Pulse Rate 62 Respiratory 16 Rate Blood Pressure 100/62 O2 Sat by Pulse 95 Oximetry Medical Decision Making - Medical Decision Making EKG shows sinus bradycardia at 59 bpm VA interval 280 QRS is 90 QT intervals 428 QTC is 423. EKG shows no ST segment elevation or depression. CT of the brain shows no acute normalities. Patient received Tylenol for the headache. I went back into the room and reevaluated the patient she was sleeping and when she woke up she stated she felt much better. Patient was able to ambulate and be steady on her feet. - Lab Data Result diagrams: 04/24/21 10:05 04/24/21 10:05 Lab Results 04/24/21 04/24/21 04/24/21 Range/Units 10:05 10:05 10:05 WBC 4.9 (3.8-10.6) k/uL RBC 4.37 (3.80-5.40) m/uL Hgb 13.9 (11.4-16.0) gm/dL Hct 42.1 (34.0-46.0) % MCV 96.5 (80.0-100.0) fL MCH 31.8 (25.0-35.0) pg MCHC 32.9 (31.0-37.0) g/dL RDW 13.6 (11.5-15.5) % Plt Count 158 (150-450) k/uL MPV 9.2 Neutrophils % 69 % Lymphocytes % 19 % Monocytes % 7 % Eosinophils % 3 % Basophils % 0 % Neutrophils # 3.4 (1.3-7.7) k/uL Lymphocytes # 0.9 L (1.0-4.8) k/uL Monocytes # 0.3 (0-1.0) k/uL Eosinophils # 0.2 (0-0.7) k/uL Basophils # 0.0 (0-0.2) k/uL PT 10.4 (9.0-12.0) sec INR 1.0 (<1.2) APTT 22.6 (22.0-30.0) sec Sodium 141 (137-145) mmol/L Potassium 4.6 (3.5-5.1) mmol/L Chloride 109 H (98-107) mmol/L Carbon Dioxide 27 (22-30) mmol/L Anion Gap 5 mmol/L BUN 30 H (7-17) mg/dL Creatinine 1.54 H (0.52-1.04) mg/dL Est GFR (CKD-EPI)AfAm 40 (>60 ml/min/1.73 sqM) Est GFR (CKD-EPI)NonAf 35 (>60 ml/min/1.73 sqM) Glucose 91 (74-99) mg/dL Calcium 9.4 (8.4-10.2) mg/dL Magnesium 2.5 H (1.6-2.3) mg/dL Total Bilirubin 0.7 (0.2-1.3) mg/dL AST 22 (14-36) U/L ALT 10 (4-34) U/L Alkaline Phosphatase 129 H (38-126) U/L Troponin I (0.000-0.034) ng/mL Total Protein 6.4 (6.3-8.2) g/dL Albumin 3.6 (3.5-5.0) g/dL 04/24/21 Range/Units 10:05 WBC (3.8-10.6) k/uL RBC (3.80-5.40) m/uL Hgb (11.4-16.0) gm/dL Hct (34.0-46.0) % MCV (80.0-100.0) fL MCH (25.0-35.0) pg MCHC (31.0-37.0) g/dL RDW (11.5-15.5) % Plt Count (150-450) k/uL MPV Neutrophils % % Lymphocytes % % Monocytes % % Eosinophils % % Basophils % % Neutrophils # (1.3-7.7) k/uL Lymphocytes # (1.0-4.8) k/uL Monocytes # (0-1.0) k/uL Eosinophils # (0-0.7) k/uL Basophils # (0-0.2) k/uL PT (9.0-12.0) sec INR (<1.2) APTT (22.0-30.0) sec Sodium (137-145) mmol/L Potassium (3.5-5.1) mmol/L Chloride (98-107) mmol/L Carbon Dioxide (22-30) mmol/L Anion Gap mmol/L BUN (7-17) mg/dL Creatinine (0.52-1.04) mg/dL Est GFR (CKD-EPI)AfAm (>60 ml/min/1.73 sqM) Est GFR (CKD-EPI)NonAf (>60 ml/min/1.73 sqM) Glucose (74-99) mg/dL Calcium (8.4-10.2) mg/dL Magnesium (1.6-2.3) mg/dL Total Bilirubin (0.2-1.3) mg/dL AST (14-36) U/L ALT (4-34) U/L Alkaline Phosphatase (38-126) U/L Troponin I <0.012 (0.000-0.034) ng/mL Total Protein (6.3-8.2) g/dL Albumin (3.5-5.0) g/dL Disposition Clinical Impression: Vertigo Disposition: HOME SELF-CARE Condition: Good Instructions (If sedation given, give patient instructions): Vertigo (ED) Additional Instructions: Patient states Antivert as prescribed. Patient will get some Zofran and take it as prescribed as well Is patient prescribed a controlled substance at d/c from ED?: No Referrals: Corry Winter MD [Primary Care Provider] - 1-2 days Time of Disposition: 12:32
[2021-04-24 10:19] LABS: Basophils % (A) 0 %; Eosinophils # (A) 0.2 k/uL (0-0.7); Eosinophils % (A) 3 %; HCT 42.1 % (34.0-46.0); HGB 13.9 gm/dL (11.4-16.0); Lymphocytes # (A) 0.9 k/uL (1.0-4.8); Lymphocytes % (A) 19 %; MCH 31.8 pg (25.0-35.0); MCHC 32.9 g/dL (31.0-37.0); MCV 96.5 fL (80.0-100.0); Mean Platelet Volume 9.2; Monocytes # (A) 0.3 k/uL (0-1.0); Monocytes % (A) 7 %; Neutrophils # (A) 3.4 k/uL (1.3-7.7); Neutrophils % (A) 69 %; Platelet Count 158 k/uL (150-450); RBC 4.37 m/uL (3.80-5.40); RDW 13.6 % (11.5-15.5); WBC 4.9 k/uL (3.8-10.6)
[2021-04-24 10:32] LABS: Partial Thromboplastin Time 22.6 sec (22.0-30.0); Prothrombin Time 10.4 sec (9.0-12.0)
[2021-04-24 10:33] LABS: Albumin 3.6 g/dL (3.5-5.0); Calcium 9.4 mg/dL (8.4-10.2); Magnesium 2.5 mg/dL (1.6-2.3); Potassium 4.6 mmol/L (3.5-5.1); Total Bilirubin 0.7 mg/dL (0.2-1.3); Total Protein 6.4 g/dL (6.3-8.2)
--- NOTE | 2021-04-24 11:11 | XR ---
EXAMINATION TYPE: XR chest 2V DATE OF EXAM: 04/24/2021 COMPARISON: NONE TECHNIQUE: PA and lateral views submitted. HISTORY: Chest pain FINDINGS: The lungs are clear and there is no pneumothorax, pleural effusion, or focal pneumonia. Postsurgica l change right shoulder. Diffuse osteopenia. Heart size normal. No overt failure. IMPRESSION: 1. No acute process.
[2021-04-24 11:31] VITALS: RESP 16
[2021-04-24] MEDS ORDERED: ACETAMINOPHEN TAB 500 MG TAB PO STA (11:44)
--- NOTE | 2021-04-24 12:16 | CT ---
EXAMINATION TYPE: CT brain wo con DATE OF EXAM: 04/24/2021 HISTORY: Vertigo CT DLP: 1072.4 mGycm. Automated Exposure Control for Dose Reduction was Utilized. TECHNIQUE: CT scan of the head is performed without contrast. COMPARISON: None. FINDINGS: There is no acute intracranial hemorrhage or midline shift identified. There is mild diff use ventricular and sulcal prominence consistent with mild diffuse age-related cerebral atrophy. The re is scattered low-attenuation in the deep and periventricular white matter consistent with chronic small vessel ischemic change. The globes are intact and the visualized sinuses are clear. Note chanda picious opacification mastoid air cells. IMPRESSION: No acute intracranial hemorrhage or midline shift. There is mild diffuse cerebral atrop hy and [id number] nonspecific white matter change favored product of chronic small vessel ische anel change in patient of this age.
[2021-04-24] MEDS ORDERED: ONDANSETRON 4 MG ODT STARTER PACK 2 TAB BTL PO STA (12:32)
[2021-04-24 12:40] VITALS: BP 108/65; PULSE 60
== END 2021-04-24 12:40 | disposition home or self-care (01) ==
LOC: EC 09:24
DX: R42 Dizziness and giddiness (principal); I10 Essential (primary) hypertension; E07.9 Disorder of thyroid, unspecified; Z90.710 Acquired absence of both cervix and uterus; Z88.6 Allergy status to analgesic agent; Z98.51 Tubal ligation status
CPT/HCPCS: 99284; 96374; 96375; 36415; 93005; 80053; 83735; 84484; 85025; 85610; 85730; 71046; 70450; J3360; J2405; S0119

== ENCOUNTER → 2021-05-29 | Outpatient (CLI) | payer MEDICARE ==
--- NOTE | 2021-05-31 10:24 | MM ---
Reason for exam: screening (asymptomatic). Last mammogram was performed 1 year and 2 months ago. History: Patient is postmenopausal. Family history of breast cancer in 2 paternal aunts and breast cancer in 3 paternal cousins. Benign excisional biopsy of the left breast, 2014. Physical Findings: A clinical breast exam by your physician is recommended on an annual basis and results should be correlated with mammographic findings. MG 3D Screening Mammo W/Cad Bilateral CC and MLO view(s) were taken. CV view(s) were taken of the left breast. Prior study comparison: March 20, 2020, bilateral MG 3d screening mammo w/cad. February 19, 2019, bilateral MG 3d screening mammo w/cad. There are scattered fibroglandular densities. Previous mammotome biopsy in the left breast. There is chronic nodularity in the left breast. No significant changes when compared with prior studies. ASSESSMENT: Benign, BI-RAD 2 RECOMMENDATION: Routine screening mammogram of both breasts in 1 year.
== END | disposition home or self-care (01) ==
LOC: RADMAMWWP 12:30
PROVIDERS: ATTEND Family Medicine
DX: Z12.31 Encounter for screening mammogram for malignant neoplasm of breast (principal)
CPT/HCPCS: 77063; 77067

== ENCOUNTER 2021-12-26 13:35 | Emergency (ER) | payer MEDICARE ==
--- NOTE | 2021-12-26 16:23 | XR ---
EXAMINATION TYPE: XR chest 2V DATE OF EXAM: 12/26/2021 COMPARISON: Chest x-ray 04/24/2021 HISTORY: Shortness of breath and cough TECHNIQUE: Frontal and lateral views of the chest are obtained. FINDINGS: Patient is status post right shoulder arthroplasty. Bandlike areas of increased attenuatio n present in the left mid and lower lung are noted, the left chest phrenic angle similar density is c hronic. No evident pneumothorax or pleural effusion. Cardiac mediastinal silhouette is stable. There is bronchial wall thickening. IMPRESSION: Correlate for bronchitis, difficult to exclude pneumonia versus atelectasis or scar left lower lobe. Follow-up suggested.
[2021-12-26 16:47] VITALS: RESP 18
--- NOTE | 2021-12-26 16:49 | ED ---
General Adult HPI - General Chief complaint: Upper Respiratory Infection Stated complaint: Covid+/infusion Time Seen by Provider: 12/26/21 16:35 Source: patient, RN notes reviewed, old records reviewed Mode of arrival: ambulatory Limitations: no limitations - History of Present Illness Initial comments: 66-year-old female presenting for evaluation of coronavirus and primary requesting monoclonal antibody infusion. Patient has had symptoms consistent with coronavirus infection, cough, mild dyspnea, sore throat as well as nausea and diarrhea. She has not had a measured fever. No central chest pain. Patient is vaccinated and boosted. Her symptoms have been present for approximately one week. - Related Data Home Medications Medication Instructions Recorded Confirmed ALPRAZolam [Xanax] 0.25 mg PO BID 10/20/18 04/24/21 Ergocalciferol [Vitamin D2] 50,000 unit PO FR 10/20/18 04/24/21 Fluticasone Propionate [Flonase 2 spray EA NOSTRIL DAILY 10/20/18 04/24/21 Allergy Relief] Furosemide [Lasix] 20 mg PO DAILY 10/20/18 04/24/21 Meclizine [Antivert] 12.5 mg PO BID 10/20/18 04/24/21 Metoprolol Tartrate [Lopressor] 50 mg PO DAILY 10/20/18 04/24/21 busPIRone HCL 15 mg PO BID 10/20/18 04/24/21 calcitrioL [Calcitriol] 0.25 mcg PO SUTUTHSA 10/20/18 04/24/21 calcitrioL [Calcitriol] 0.5 mcg PO MOWEFR 10/20/18 04/24/21 gemfibroziL [Lopid] 600 mg PO BID 10/20/18 04/24/21 Albuterol Sulfate [Ventolin HFA] 1 puff INHALATION RT-Q4H PRN 04/24/21 04/24/21 Cholecalciferol (Vitamin D3) 125 mcg PO DAILY 04/24/21 04/24/21 [Vitamin D3 (125 MCG = 5,000 IU)] DULoxetine HCL [Cymbalta] 60 mg PO DAILY 04/24/21 04/24/21 Diphenox-Atrop 2.5-0.025 mg 1 tab PO BID@1200,2100 PRN 04/24/21 04/24/21 [Lomotil] Diphenoxylate HCl/Atropine 1 tab PO DAILY 04/24/21 04/24/21 [Lomotil 2.5-0.025 mg Tablet] Fexofenadine HCl 180 mg PO DAILY 04/24/21 04/24/21 Fluticasone/Salmeterol [Advair 1 puff INHALATION RT-BID 04/24/21 04/24/21 250-50 Diskus] Levothyroxine Sodium [Synthroid] 25 mcg PO DAILY 04/24/21 04/24/21 Omeprazole 20 mg PO DAILY 04/24/21 04/24/21 Pregabalin [Lyrica] 100 mg PO BID 04/24/21 04/24/21 Terbinafine [LamISIL] 250 mg PO DAILY 04/24/21 04/24/21 Allergies Allergy/AdvReac Type Severity Reaction Status Date / Time ibuprofen [From Motrin] AdvReac KIDNEY Verified 12/26/21 16:03 DISEASE Review of Systems ROS Statement: Those systems with pertinent positive or pertinent negative responses have been documented in the HPI. ROS Other: All systems not noted in ROS Statement are negative. Past Medical History Past Medical History: Hypertension, Renal Disease, Thyroid Disorder History of Any Multi-Drug Resistant Organisms: None Reported Past Surgical History: Hernia Repair, Hysterectomy, Orthopedic Surgery, Tubal Ligation Additional Past Surgical History / Comment(s): cyst removal from breast Past Psychological History: No Psychological Hx Reported Smoking Status: Never smoker Past Alcohol Use History: None Reported Past Drug Use History: None Reported General Exam Limitations: no limitations General appearance: alert, in no apparent distress Head exam: Present: atraumatic, normocephalic Eye exam: Present: normal appearance, PERRL ENT exam: Present: mucous membranes dry Neck exam: Present: normal inspection. Absent: tenderness, meningismus Respiratory exam: Present: rhonchi. Absent: respiratory distress Cardiovascular Exam: Present: regular rate, normal rhythm GI/Abdominal exam: Present: soft. Absent: distended, tenderness, guarding Extremities exam: Present: pedal edema Neurological exam: Present: alert, oriented X3, CN II-XII intact. Absent: motor sensory deficit Psychiatric exam: Present: normal affect, normal mood Skin exam: Present: warm, dry, intact. Absent: cyanosis, diaphoretic Course Vital Signs 12/26/21 15:58 Temperature 98.0 F Pulse Rate 55 L Respiratory 20 Rate Blood Pressure 154/95 O2 Sat by Pulse 97 Oximetry Medical Decision Making - Medical Decision Making 66-year-old female with coronavirus. Patient does meet for monoclonal antibody infusion her this is ordered in the emergency department. She has mild dyspnea but no respiratory distress. Normal oxygenation. Stable vitals. She should follow closely with her primary care physician. She should take vitamin C, zinc, vitamin D. Disposition Clinical Impression: COVID-19 Disposition: HOME SELF-CARE Condition: Fair Instructions (If sedation given, give patient instructions): COVID-19 (Coronavirus Disease 2019) (ED) Is patient prescribed a controlled substance at d/c from ED?: No Referrals: Corry Winter MD [Primary Care Provider] - 1-2 days
[2021-12-26] MEDS ORDERED: BEBTELOVIMAB (EUA) 175 MG/2 ML VIAL IV ONE (17:00)
[2021-12-26 18:40] VITALS: BP 130/78; PULSE 87; TEMP 98.8
== END 2021-12-26 18:39 | disposition home or self-care (01) ==
LOC: EC 13:35
DX: U07.1 COVID-19 (principal); I10 Essential (primary) hypertension; Z79.899 Other long term (current) drug therapy; Z88.6 Allergy status to analgesic agent
CPT/HCPCS: 99285 ×2; 87635; 71046; Q0222

== ENCOUNTER → 2022-05-30 | Outpatient (CLI) | payer MEDICARE ==
--- NOTE | 2022-05-31 09:56 | MM ---
Reason for Exam: Screening (asymptomatic). Last screening mammogram was performed 12 month(s) ago. Patient History: Menarche at age 11. First Full-Term at age 18. Hysterectomy at age 39. Postmenopausal. 2014, Benign Excisional Biopsy on the left side. Paternal cousin (Danette) had breast cancer under age 50. Paternal cousin (Danette) had breast cancer at or over age 50. Paternal cousin (Pippa) had breast cancer under age 50. Paternal cousin (Anna Marie) had breast cancer at or over age 50. Paternal aunt (Chinmay) had breast cancer. Paternal aunt (Brunilda) had breast cancer. Risk Values: Lorrie 5 year model risk: 1.5%. NCI Lifetime model risk: 4.8%. Prior Study Comparison: 02/19/2019 Bilateral Screening Mammogram, [facility]. 03/20/2020 Bilateral Screening Mammogram, [facility]. 05/29/2021 Bilateral Screening Mammogram, [facility]. Tissue Density: The breast tissue is almost entirely fat. Findings: Analyzed By CAD. There is no suspicious group of microcalcifications or new suspicious mass in either breast. Left breast biopsy clip. Overall Assessment: Benign, BI-RAD 2 Management: Screening Mammogram of both breasts in 1 year. A clinical breast exam by your physician is recommended on an annual basis and results should be correlated with mammographic findings. [facility] will attempt to contact patient to return for supplemental views and ultrasound if indicated. Electronically signed and approved by: Rashaun Lobo DO
== END | disposition home or self-care (01) ==
LOC: RADMAMWWP 11:12
PROVIDERS: ATTEND Family Medicine
DX: Z12.31 Encounter for screening mammogram for malignant neoplasm of breast (principal); Z78.0 Asymptomatic menopausal state; Z80.3 Family history of malignant neoplasm of breast
CPT/HCPCS: 77063; 77067

== ENCOUNTER → 2023-09-25 | Outpatient (CLI) | payer MEDICARE, OTHER ==
--- NOTE | 2023-09-25 20:55 | BD ---
EXAMINATION TYPE: Axial Bone Density DATE OF EXAM: 09/25/2023 CLINICAL HISTORY: 68 years old Female. ICD-10 CODE: M85.80 OTHER SPECIFIED DISORDERS OF BONE DENSITY A Height: 64 Weight: 245 FRAX RISK QUESTIONS: Alcohol (3 or more units per day): no Family History (Parent hip fracture): no Glucocorticoids (More than 3mos): no (Ex: prednisone, prednisolone, methylprednisolone, dexamethasone, and hydrocortisone). History of Fracture in Adulthood: yes Secondary Osteoporosis: 1. Type 1 Diabetes: no 2. Hyperthyroidism: no 3. Menopause before 45: yes 4. Malnutrition: no 5. Chronic liver disease: no Rheumatoid Arthritis: no Current Tobacco Use: no RISK FACTORS HISTORY OF: Surgery to Spine/Hip(right/left)/Wrist (right/left): no EXAM MEASUREMENTS: Bone mineral densitometry was performed using the [employer] System. Bone mineral density as measured about the Lumbar spine is: ----- L1-L4(G/cm2): 1.035 T Score Values are as follows: ----- L1: -1.8 ----- L2: -1.4 ----- L3: -1.2 ----- L4: -0.8 ----- L1-L4: -1.2 Z Score Values are as follows: ----- L1: -1.3 ----- L2: -0.9 ----- L3: -0.7 ----- L4: -0.3 ----- L1-L4: -0.7 Bone mineral density has: increased 1.9 % since study of: 2019 Bone mineral density about the R hip (g/cm2): 0.820 Bone mineral density about the L hip (g/cm2): 0.805 T Score values are as follows: -----R Neck: -2.4 -----L Neck: -2.3 -----R Total: -1.5 -----L Total: -1.6 Z Score values are as follows: -----R Neck: -1.5 -----L Neck: -1.4 -----R Total: -0.9 -----L Total: -1.0 Bone mineral density has: decreased -4.6 % since study of: 2019 FRAX%s: The graph provided illustrates a 18.9% chance for a major osteoporotic fx and a 4.0% chance f or the hips probability for fx in 10 years time. IMPRESSION: Osteopenia (T Score between -2.5 and -1). There is slightly increased risk of fracture and the patient may be considered for treatment. Re-Screen 2-5 years. NOTE: T-SCORE=SD OF THE YOUNG ADULT MEAN.
== END | disposition home or self-care (01) ==
LOC: RADBDWWP 13:39
PROVIDERS: ATTEND Family Medicine
DX: M85.89 Other specified disorders of bone density and structure, multiple sites (principal); Z78.0 Asymptomatic menopausal state
CPT/HCPCS: 77080